=== PATIENT | female | born 1945 | race Caucasian/White ===

== ENCOUNTER → 2018-02-06 10:41 | Outpatient (CLI) | payer MEDICARE, SELFPAY ==
--- NOTE | 2018-02-06 10:46 | BI_ITS ---
MAMMOGRAPHY - BILATERAL SCREENING REASON FOR EXAM: Female, 72 years old. Routine annual screening examination. PERTINENT HISTORY: Mother with breast cancer. TECHNIQUE: Digital bilateral breast elijah (3D mammographic acquisition) in the CC and MLO projections. 2-D mediolateral oblique (MLO) and craniocaudad (CC) views of both breasts were obtained. CAD: Full Field Digital Mammography with Computer Added Detection was performed. COMPARISON: Comparison is made with prior active examination in June 14, 2016. FINDINGS: Breast Composition: The breasts are heterogeneously dense, which may obscure small masses. There are no dominant masses or suspicious calcifications. No other significant abnormalities are identified. There has been no significant change since the prior study. BI/SCREENING MAMM (CAD), BILAT IMPRESSION: Stable bilateral screening mammogram. Yearly follow-up mammogram recommended. (A) ASSESSMENT CATEGORY: BIRADS Category 1: Negative. A letter regarding these results will be sent to the patient by the facility within 30 days. Approximately 10% of breast cancers are not detected by mammography. A normal mammogram should not delay biopsy of a clinically suspicious abnormality. [id number] Electronically Signed: Mor Kimbrough MD at 15:22 EDT Tel [phone], Service support ,
--- NOTE | 2018-02-06 10:50 | BD_ITS ---
STUDY: DUAL ENERGY X-RAY ABSORPTIOMETRY / DXA REASON FOR EXAM: Female, 72 years old. And a positive age 54. Moderate exercise. History of left ankle fracture. TECHNIQUE: Bone Mineral Density (BMD) measurements of lumbar spine and bilateral hips were obtained. COMPARISON: October 11, 2000 FINDINGS: Lumbar Spine (L1-L4): g/cm2 (0.927) / T-score (-2.1) / Z-score (-0.4) Findings are suggestive of osteopenia with a moderate fracture risk. Left Femur Total: g/cm2 (0.670) / T-score (-2.7) / Z-score (-1.2) Left Femoral Neck: g/cm2 (0.705) / T-score (-2.4) / Z-score (-0.7) Right Femur Total: g/cm2 (0.705) / T-score (-2.4) / Z-score (-0.9) Right Femoral Neck: g/cm2 (0.711) / T-score (-2.4) / Z-score (-0.7) The T-Scores on the most recent prior examination were: Lumbar Spine (L1-L4): There has been improvement of bone density since the previous examination of 2.3%. Left Femur Total: There is been a decrease in bone mineral density of -17.8%. BD/Dexa Bone Density Study IMPRESSION: The patient is considered osteoporotic as outlined below according to World Mg Organization (WHO) criteria with a high fracture risk. There has been overall worsening of bone density since the previous examination. Reference Information: The T-score is the number of standard deviations above or below the standard which is normal for young adults at their peak bone mineral density. The World Health Organization (WHO) interprets the T-scores as follows: Above -1 Normal bone density Between -1 and -2.5 Osteopenia Equal to / or below -2.5 Osteoporosis As a practical clinical guideline, osteopenia may be graded as follows: Mild -1 through -1.5 Moderate -1.6 through -2.0 Severe -2.1 through -2.4 The Z-score is the number of standard deviations above or below age-matched controls. A Z-score of less than -1.5 would be considered abnormal. References: 1. NIH Osteoporosis and Related Bone Diseases http://www.osteo.org 2. International Society for Clinical Densitometry http://www.iscd.org 3. National Osteoporosis Foundation http://www.nof.org Electronically Signed: Moustapha Pollack DO at 11:50 EDT Tel [phone], Service support ,
== END ==
PROVIDERS: Family Provider Family Medicine; PCP Family Medicine; Visit Provider Family Medicine
DX: Z12.31 Encounter for screening mammogram for malignant neoplasm of breast (principal); Z78.0 Asymptomatic menopausal state
CPT/HCPCS: 77063; 77067; 77080

== ENCOUNTER → 2018-06-13 08:57 | Outpatient (CLI) | payer MEDICARE, SELFPAY ==
[2018-06-13 10:12] LABS: Absolute Lymphocyte Count 1.22 X10^3/ul (0.83-4.51); Absolute Neutrophil Count 2.2 X10^3/uL (2.0-7.7); Basophil# 0.02 X10^3/uL; Basophil% 0.5 % (0-1); Eosinophil# 0.16 X10^3/uL; Eosinophils% 3.9 % (0-5); Hematocrit 41.4 % (37-47); Hemoglobin 13.3 g/dl (12.0-15.0); Lymphocyte # 1.22 X10^3/ul (4.0); Lymphocyte % 29.9 % (19-41); Mean Corp Hgb Conc 32.1 g/gl (32-36); Mean Corpuscular Hgb 29.8 pg (27.0-32.0); Mean Corpuscular Volume 92.6 fL (81-99); Mean Platelet Vol. 11.2 fl (6.2-12.0); Monocyte# 0.53 X10^3/uL; Neutrophil # 2.15 X10^3/uL (2.7-7.7); Neutrophil % 52.7 % (47-70); Platelet Count 283 K/mm3 (150-450); RBC Distribution Width CV 12.7 % (11.6-14.6); RBC Distribution Width SD 42.9 fl (35.1-43.9); Red Blood Count 4.47 M/mm3 (4.2-5.4); White Blood Count 4.1 K/mm3 (4.4-11.0)
[2018-06-13 10:15] LABS: POSITIVE COUNT NO; POSITIVE DIFFERENTIAL NO; POSITIVE MORPHOLOGY NO
[2018-06-13 10:31] LABS: Anion Gap 7 (5-15); BUN 15 mg/dL (7-18); BUN/Creat Ratio 20.9 RATIO (10-20); Calcium,Total 9.1 mg/dL (8.5-10.1); Chloride 106 mmol/L (98-107); Creatinine, Serum 0.72 mg/dL (0.55-1.02); EST Glomerular Filtration Rate 85 mL/min (>60); Est Glom Filt Rate - Afr Amer 103 mL/min (>60); Glucose 94 mg/dL (74-106); Potassium 3.8 mmol/L (3.5-5.1); Sodium Level 142 mmol/L (136-145); Thyroid Stim Hormone (TSH) 3.38 uIU/mL (0.358-3.74)
[2018-06-13 10:41] LABS: PTHIN 56.8 pg/mL (18.4-80.1); Vitamin D,25 Hydroxy 54.8 ng/mL (29.95-100.01)
== END ==
PROVIDERS: Family Provider Family Medicine; PCP Family Medicine; Visit Provider Family Medicine
DX: M81.0 Age-related osteoporosis without current pathological fracture (principal); K21.9 Gastro-esophageal reflux disease without esophagitis; Z13.220 Encounter for screening for lipoid disorders
CPT/HCPCS: 36415; 80048; 82306; 82330; 83970; 84443; 85025

== ENCOUNTER → 2018-07-11 10:48 | Outpatient (CLI) | payer MEDICARE, SELFPAY ==
--- NOTE | 2018-07-11 10:57 | RAD_ITS ---
STUDY: X-RAY - ABDOMEN/PELVIS REASON FOR EXAM: Female, 72 years old. Constipation with pain in the right lower quadrant and right lower back. TECHNIQUE: KUB upright and supine COMPARISON: CT abdomen and pelvis 03/15/2016. FINDINGS: Moderate stool burden of large bowel, primarily at the splenic flexure and descending colon, not excessive, no apparent constipation. Normal small bowel pattern, scattered gas, nondilated. Grossly normal size and position of the solid organs of the abdomen. No free air. No evidence of urinary calculus. 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 The lung bases are clear with normal cardiac silhouette. There is mild levoscoliotic curvature lumbar spine with mild low lumbar degenerative disc disease and facet arthropathy between L3 and S1. Osteopenia. RAD/Abd Inc Decub and/or Erect IMPRESSION: No acute intra-abdominal process is evident. No evidence of constipation. Lumbar scoliosis with mild low lumbar spondylosis. Electronically Signed: Shayne Piña, at 12:00 EST Tel , Service support ,
== END ==
PROVIDERS: Family Provider Family Medicine; PCP Family Medicine; Referring Provider Family Medicine; Visit Provider Family Medicine
DX: K59.00 Constipation, unspecified (principal)
CPT/HCPCS: 74019

== ENCOUNTER → 2020-02-17 | Outpatient (CLI) | payer MEDICARE, SELFPAY ==
[2020-02-17 09:58] LABS: Hematocrit 42.2 % (37-47); Hemoglobin 13.3 g/dL (12.0-15.0); Mean Corp Hgb Conc 31.5 g/dL (32-36); Mean Corpuscular Hgb 29.7 pg (27.0-32.0); Mean Corpuscular Volume 94.2 fL (81-99); Mean Platelet Vol. 11.2 fl (6.2-12.0); Platelet Count 290 K/mm3 (150-450); RBC Distribution Width CV 12.4 % (11.6-14.6); RBC Distribution Width SD 42.6 fl (35.1-43.9); Red Blood Count 4.48 M/mm3 (4.2-5.4); White Blood Count 4.2 K/mm3 (4.4-11.0)
[2020-02-17 10:37] LABS: Anion Gap 6 (5-15); BUN 14 mg/dL (7-18); BUN/Creat Ratio 20.3 RATIO (10-20); Calcium,Total 9.1 mg/dL (8.5-10.1); Chloride 104 mmol/L (98-107); Creatinine, Serum 0.69 mg/dL (0.55-1.02); EST Glomerular Filtration Rate 89 mL/min (>60); Est Glom Filt Rate - Afr Amer 108 mL/min (>60); Glucose 93 mg/dL (74-106); Potassium 4.2 mmol/L (3.5-5.1); Sodium Level 140 mmol/L (136-145)
== END | disposition home or self-care (01) ==
PROVIDERS: PCP Family Medicine; Referring Provider Family Medicine; Visit Provider Family Medicine
DX: K21.9 Gastro-esophageal reflux disease without esophagitis (principal); M81.0 Age-related osteoporosis without current pathological fracture
CPT/HCPCS: 36415; 80048; 85027

== ENCOUNTER → 2021-02-01 09:13 | Outpatient (CLI) | payer MEDICARE, SELFPAY ==
[2021-02-01 12:24] LABS: Vitamin D,25 Hydroxy 44.2 ng/mL
[2021-02-01 12:27] LABS: PTHIN 62.8 pg/mL (18.4-80.1)
[2021-02-01 12:34] LABS: Anion Gap 3 (5-15); BUN 14 mg/dL (7-18); BUN/Creat Ratio 19.7 RATIO (10-20); Calcium,Total 9.2 mg/dL (8.5-10.1); Chloride 106 mmol/L (98-107); Creatinine, Serum 0.71 mg/dL (0.55-1.02); EST Glomerular Filtration Rate 85 mL/min (>60); Est Glom Filt Rate - Afr Amer 103 mL/min (>60); Glucose 93 mg/dL (74-106); Potassium 3.7 mmol/L (3.5-5.1); Sodium Level 139 mmol/L (136-145); Thyroid Stim Hormone (TSH) 2.89 uIU/mL (0.358-3.74)
== END ==
PROVIDERS: PCP Family Medicine; Visit Provider Family Medicine
DX: M81.0 Age-related osteoporosis without current pathological fracture (principal)
CPT/HCPCS: 36415; 80048; 82306; 83970; 84443

== ENCOUNTER → 2022-02-06 | Outpatient (CLI) | payer MEDICARE, SELFPAY ==
[2022-02-06 10:29] LABS: PTHIN 77.5 pg/mL (18.4-80.1)
[2022-02-06 10:46] LABS: Anion Gap 3 (5-15); BUN 16 mg/dL (7-18); Calcium,Total 8.9 mg/dL (8.5-10.1); Chloride 109 mmol/L (98-107); EST Glomerular Filtration Rate 74 mL/min (>60); Est Glom Filt Rate - Afr Amer 90 mL/min (>60); Glucose 100 mg/dL (74-106); Potassium 3.8 mmol/L (3.5-5.1); Sodium Level 141 mmol/L (136-145)
== END | disposition home or self-care (01) ==
LOC: MFPLAB 08:41
PROVIDERS: PCP Family Medicine; Visit Provider Family Medicine
DX: M81.0 Age-related osteoporosis without current pathological fracture (principal)
CPT/HCPCS: 80048; 82306; 82330; 83970

== ENCOUNTER → 2023-08-15 | Outpatient (CLI) | payer MEDICARE, SELFPAY ==
--- NOTE | 2023-08-15 12:46 | BI_ITS ---
MAMMOGRAPHY - BILATERAL SCREENING REASON FOR EXAM: Female, 77 years old. Routine annual screening examination. PERTINENT HISTORY: Mother with breast cancer. TECHNIQUE: Digital bilateral breast elijah (3D mammographic acquisition) in the CC and MLO projections. 2-D mediolateral oblique (MLO) and craniocaudad (CC) views of both breasts were obtained. CAD: Full Field Digital Mammography with Computer Added Detection was performed. COMPARISON: Comparison is made with prior study dated February 06, 2018. FINDINGS: Breast Composition: The breasts are heterogeneously dense, which may obscure small masses. There are no dominant masses or suspicious calcifications. Stable benign-appearing bilateral axillary lymph nodes. No other significant abnormalities are identified. There has been no significant change since the prior study. BI/SCREENING MAMM (CAD), BILAT IMPRESSION: Stable bilateral screening mammogram. Yearly follow-up mammogram recommended. (A) ASSESSMENT CATEGORY: BIRADS Category 2: Benign. A letter regarding these results will be sent to the patient by the facility within 30 days. Approximately 10% of breast cancers are not detected by mammography. A normal mammogram should not delay biopsy of a clinically suspicious abnormality. [id number] Electronically Signed: Mor Kimbrough MD at 14:02 EST ,
== END | disposition home or self-care (01) ==
LOC: OPBI 12:45
PROVIDERS: PCP Family Medicine; Referring Provider Family Medicine; Visit Provider Family Medicine
DX: Z12.31 Encounter for screening mammogram for malignant neoplasm of breast (principal); Z80.3 Family history of malignant neoplasm of breast
CPT/HCPCS: 77067

== ENCOUNTER → 2024-01-01 | Outpatient (CLI) | payer MEDICARE, SELFPAY ==
[2024-01-01 10:28] LABS: Vitamin D,25 Hydroxy 67.9 ng/mL
[2024-01-01 10:29] LABS: PTHIN 52.1 pg/mL (18.4-80.1)
[2024-01-01 10:56] LABS: Anion Gap 7 (5-15); BUN 17 mg/dL (7-18); BUN/Creat Ratio 20.4 RATIO (10-20); Calcium,Total 9.5 mg/dL (8.5-10.1); Chloride 106 mmol/L (98-107); Creatinine, Serum 0.83 mg/dL (0.55-1.02); EST Glomerular Filtration Rate 71 mL/min (>60); Est Glom Filt Rate - Afr Amer 86 mL/min (>60); Glucose 107 mg/dL (74-106); Magnesium 2.2 mg/dL (1.6-2.6); Phosphorus 2.7 mg/dL (2.5-4.9); Potassium 3.6 mmol/L (3.5-5.1); Sodium Level 139 mmol/L (136-145); Thyroid Stim Hormone (TSH) 4.09 uIU/mL (0.358-3.74)
--- NOTE | 2024-01-01 16:44 | RAD_ITS ---
STUDY: X-RAY - PELVIS REASON FOR EXAM: Female, 78 years old. LUMBAR PAIN TECHNIQUE: One view of the pelvis was obtained. COMPARISON: None. FINDINGS: There is a non-specific bowel gas pattern. Normal visualized soft tissue structures. Normal bilateral iliac wings, sacroiliac joints and visualized sacrum. Normal visualized bilateral superior and inferior pubic rami. Normal pubic symphysis. Normal ischial tuberosities. Normal visualized right femoral head. Normal right acetabulum. There is mild articular joint space narrowing of the right hip. Normal visualized left femoral head. Normal left acetabulum. There is mild articular joint space narrowing of the left hip. RAD/Pelvis 1 or 2 Views IMPRESSION: Normal x-ray examination of the pelvis. Mild bilateral hip arthrosis. Electronically Signed: Shayne Gaming MD at 23:40 EDT ,
--- NOTE | 2024-01-01 16:45 | RAD_ITS ---
STUDY: X-RAY - LUMBAR SPINE REASON FOR EXAM: Female, 78 years old. PAIN TECHNIQUE: 5 view(s) of the lumbar spine were obtained. COMPARISON: None FINDINGS: Normal lumbar lordosis. There is no substantial scoliosis. There is a normal alignment of the vertebrae. There is multilevel endplate spondylosis of the lumbar vertebrae. There is multi-level degenerative disc disease with multi-level disc space narrowing. There is multilevel facet hypertrophy in the lower lumbar spine. The soft tissue structures are unremarkable. RAD/L/S Spine Min 4 Views IMPRESSION: Degenerative changes of the spine, as detailed above. MRI may be useful. Electronically Signed: Shayne Gaming MD at 23:52 EDT ,
[2024-01-02 16:12] LABS: T4 Free Direct 1.25 ng/dL (0.76-1.46)
== END | disposition home or self-care (01) ==
PROVIDERS: PCP Family Medicine; Referring Provider Family Medicine; Visit Provider Family Medicine
DX: E03.9 Hypothyroidism, unspecified (principal); M54.50 Low back pain, unspecified; M81.0 Age-related osteoporosis without current pathological fracture
CPT/HCPCS: 72110; 72170; 80048; 82306; 83735; 83970; 84100; 84439; 84443

== ENCOUNTER → 2024-02-13 | Outpatient (CLI) | payer MEDICARE, SELFPAY ==
--- NOTE | 2024-02-13 12:34 | BD_ITS ---
STUDY: DUAL ENERGY X-RAY ABSORPTIOMETRY / DXA REASON FOR EXAM: Female, 78 years old. 733.00OsteoporosisBONE DENSITY REASON FOR EXAM TECHNIQUE: Bone Mineral Density (BMD) measurements of lumbar spine and bilateral hips were obtained. COMPARISON: Comparison is made with prior study dated February 06, 2018. FINDINGS: Lumbar Spine (L1-L4): g/cm2 (0.695) / T-score (-2.6) / Z-score (-0.3) Findings are suggestive of osteoporosis with a high fracture risk. Left Femur Total: g/cm2 (0.635) / T-score (-2.5) / Z-score (-0.7) Left Femoral Neck: g/cm2 (0.543) / T-score (-2.8) / Z-score (-0.6) Right Femur Total: g/cm2 (0.632) / T-score (-2.5) / Z-score (-0.7) Right Femoral Neck: g/cm2 (0.566) / T-score (-2.6) / Z-score (-0.4) The T-Scores on the most recent prior examination were: Lumbar Spine (L1-L4): There has been worsening of bone density since the previous examination. Left Femur Total: which represents an improvement of 3.5%. Right Femur Total: which represents a worsening of 2.4%. BD/Dexa Bone Density Study IMPRESSION: The patient is considered osteoporotic as outlined below according to World Mg Organization (WHO) criteria with a high fracture risk. There has been worsening of bone density since the previous examination. Reference Information: The T-score is the number of standard deviations above or below the standard which is normal for young adults at their peak bone mineral density. The World Health Organization (WHO) interprets the T-scores as follows: Above -1 Normal bone density Between -1 and -2.5 Osteopenia Equal to / or below -2.5 Osteoporosis As a practical clinical guideline, osteopenia may be graded as follows: Mild -1 through -1.5 Moderate -1.6 through -2.0 Severe -2.1 through -2.4 The Z-score is the number of standard deviations above or below age-matched controls. A Z-score of less than -1.5 would be considered abnormal. References: 1. NIH Osteoporosis and Related Bone Diseases www osteo.org 2. International Society for Clinical Densitometry www iscd.org 3. National Osteoporosis Foundation www nof.org Electronically Signed: Mor Kimbrough MD at 12:30 EDT ,
== END | disposition home or self-care (01) ==
PROVIDERS: PCP Family Medicine; Visit Provider Family Medicine
DX: M81.0 Age-related osteoporosis without current pathological fracture (principal)
CPT/HCPCS: 77080

== ENCOUNTER → 2024-09-16 | Outpatient (CLI) | payer MEDICARE, SELFPAY ==
--- NOTE | 2024-09-16 10:49 | RAD_ITS ---
HISTORY: PAIN. TECHNIQUE: XR Spine Cervical 6 or More Views. COMPARISON: None. FINDINGS: VERTEBRAE: Vertebral body heights maintained. No acute fracture identified. ALIGNMENT: No significant anterior or posterior subluxation. Straightening of the cervical lordosis. INTERVERTEBRAL DISCS: Degenerative endplate changes at multiple levels with mild intervertebral disc space narrowing of C3-4, moderate intervertebral disc space narrowing at C5-6, and mild intervertebral disc space narrowing of C6-7. Mild bilateral foraminal narrowing at C3-4, C5-6, at C6-7. SOFT TISSUES: No significant prevertebral soft tissue swelling. RAD/Cerv Spine Obl/Flex/Ext Comp IMPRESSION: No acute fracture or dislocation identified in the cervical spine. Multilevel degenerative change. Electronically Signed: Anna Rosas MD at 12:04 EST ,
== END | disposition home or self-care (01) ==
LOC: MTRAD 10:48
PROVIDERS: PCP Family Medicine; Referring Provider Family Medicine; Visit Provider Family Medicine
DX: M54.2 Cervicalgia (principal)
CPT/HCPCS: 72052

== ENCOUNTER → 2025-02-03 | Outpatient (CLI) | payer MEDICARE, SELFPAY ==
[2025-02-03 11:03] LABS: Anion Gap 11 (5-15); BUN 15 mg/dL (4-19); BUN/Creat Ratio 20.3 RATIO (10-20); Calcium,Total 9.4 mg/dL (7.6-11.0); Carbon Dioxide 24.1 mmol/L (21.0-32.0); Chloride 106 mmol/L (98-108); Creatinine, Serum 0.74 mg/dL (0.70-1.20); EST Glomerular Filtration Rate 83 (>60); Glucose 104 mg/dL (70-99); Potassium 4.1 mmol/L (3.3-5.1); Sodium Level 141 mmol/L (133-145); Vitamin D,25 Hydroxy 46.8 ng/mL (30-100)
--- OUTSIDE RECORDS SUMMARY | 2025-02-03 11:24 | XMS RPT_ITS | CCD ---
Author Organization [facility] Inform ion Partnership [facility] Care Team Providers Care Financial Economist Name Role Phone APRIL MIDDLETON, DR FLOREZ Primary Care Physician APRIL MIDDLETON, DR FLOREZ Primary Care Lanny ALFORD MD, DR BAÑUELOS Attending Farideh ALFORD MD, DR BAÑUELOS Attending Farideh LATHAM MD, DR FLOREZ Primary Care Gautam David Primary Care Unavailable Gautam Latham Referring Unavailable Gautam Latham Attending Unavailable Gautam Latham Primary Care Unavailable Gautam Latham Attending Unavailable Gautam Latham Primary Care Unavailable Gautam Latham Referring Unavailable Gautam Latham Attending Unavailable Allergies Allergy Classification Reported Allergen(s) Allergy Type Date of Onset Reaction(s) Facility (2 sources) Amoxicillin; Translations: [amoxicillin trihydrate] Drug Allergy 03-15-20 16 [facility] (2 sources) Cephalexin; Translations: [cephalexin] Drug Allergy 03-15-20 16 [facility] (2 sources) Halothane; Translations: [halothane] Drug Allergy 03-15-[address] [facility] (1 source) Penicillins Propensity to adverse reactions 03-15-[address] [facility] (1 source) Sulfamethoxazole Drug Allergy 03-15-20 16 [facility] (1 source) Trimethoprim Drug Allergy 03-15-20 16 [facility] (2 sources) potassium clavulanate; Translations: [potassium clavulanate] Propensity to adverse reactions 03-15-20 16 [facility] (1 source) Amoxicillin; Translations: [amoxicillin] Drug Allergy [facility] (1 source) Amoxicillin / Clavulanate; Translations: [amoxicillin-clavula curtis] Drug Allergy RASH, rAH [facility] (1 source) Penicillin; Translations: [penicillin] Drug Allergy [facility] (1 source) Sulfonamide; Translations: [sulfa drugs] Drug allergy [facility] (1 source) Cephalexin Drug Allergy 03-15-[address] [facility] (1 source) Halothane Drug Allergy 03-15-[address] [facility] (1 source) Penicillins Drug allergy (disorder) 03-15-[address] [facility] (1 source) Sulfamethoxazole Drug Allergy 03-15-[address] [facility] (1 source) Trimethoprim Drug Allergy 03-15-[address] [place] [address] Repository Medications Current Medications Medication Drug Class(es) Dates Sig (Normalized) Sig (Original) acetaminophen 325 mg / oxyCODONE hydrochloride 5 mg oral tablet (1 source) Opioid Agonist Start: 03-15-2016 take 1 tablet by mouth every four hours as needed Oxycodone-Acetami nophen Active 1 - 2 TABLET PO EVERY 4 HOURS NEEDED March 14, 2016 11:00pm naproxen 500 mg oral tablet (1 source) Nonsteroidal Anti-inflammatory Drug Start: 03-15-2016 take 500 mg by mouth twice daily Naproxen Active 500 MG PO TWICE A DAY March 14, 2016 11:00pm omeprazole 20 mg delayed release oral capsule (1 source) Proton Pump Inhibitor Start: 11-19-2023 omeprazole 20 mg oral delayed release capsule 0 Refill(s) Start Date: 11/19/23 Status: Ordered ondansetron 4 mg disintegrating oral tablet (1 source) Serotonin-3 Receptor Antagonist Start: 03-15-2016 take 4 mg by mouth every eight hours as needed Ondansetron Active 4 MG PO EVERY 8 HOURS NEEDED March 14, 2016 11:00pm tamsulosin hydrochloride 0.4 mg oral capsule (1 source) alpha-Adrenergic Chacha Start: 03-15-2016 take 0.4 mg by mouth once daily Tamsulosin Active 0.4 MG PO DAILY March 14, 2016 11:00pm tiZANidine 4 mg oral tablet (1 source) Central alpha-2 Adrenergic Agonist Start: 11-19-2023 tiZANidine 4 mg oral tablet 0 Refill(s) Start Date: 11/19/23 Status: Ordered Problems Active Problems Problem Classification Problem Date Documented Da te Episodic/Chronic Osteoporosis (1 source) Age-related osteoporosis without current pathological fracture; Translations: [Age-related osteoporosis without current pathological fracture] Onset: 02-21-2024 Chronic Other and unspecified benign neoplasm (2 sources) Polyp of colon; Translations: [Polyp of colon] Onset: 11-19-2023 Episodic Other screening for suspected conditions (not mental disorders or infectious disease) (1 source) Encounter for screening mammogram for malignant neoplasm of breast; Translations: [Encounter for screening mammogram for malignant neoplasm of breast] Onset: 01-30-2025 Episodic Past or Other Problems Problem Classification Problem Date Documented Da te Episodic/Chronic Spondylosis; intervertebral disc disorders; other back problems (1 source) Cervicalgia; Translations: [Cervicalgia] Onset: 10-07-2024 Episodic Results Test Name Value Interpretation Reference Range Facil ity Cerv Spine Obl/Flex/Ext Comp on 09-16-2024 Cerv Spine Obl/Flex/Ext Comp [facility] Imaging Services [address] [place] [address] [id number] Cerv Spine Obl/Flex/Ext Comp MR#: [id number] Acct: [id number] Name: NOREEN JULIO Rep #: [id number] : 1945 F 79 From: Anna viera MD PCP: Dr. Gautam Latham MD Status: REG CLI Study: Cerv Spine Obl/Flex/Ext Comp Date of Exam: Exam# [id number] Ordering Dr: Gautam Latham [id number] HISTORY: PAIN. TECHNIQUE: XR Spine Cervical 6 or More Views. COMPARISON: None. FINDINGS: VERTEBRAE: Vertebral body heights maintained. No acute fracture identified. ALIGNMENT: No significant anterior or posterior subluxation. Straightening of the cervical lordosis. INTERVERTEBRAL DISCS: Degenerative endplate changes at multiple levels with mild intervertebral disc space narrowing of C3-4, moderate intervertebral disc space narrowing at C5-6, and mild intervertebral disc space narrowing of C6-7. Mild bilateral foraminal narrowing at C3-4, C5-6, at C6-7. SOFT TISSUES: No significant prevertebral soft tissue swelling. RAD/Cerv Spine Obl/Flex/Ext Comp IMPRESSION: No acute fracture or dislocation identified in the cervical spine. Multilevel degenerative change. Electronically Signed: Anna Rosas MD at 12:04 EST Reading Location ID and State: [facility] / [place] Tel , Service support , CC: Dr. Gautam Latham MD Supervisor Vendor Quality: Signed Normal [facility] Dexa Bone Density Studyon Dexa Bone Density Study [facility] Imaging Services [address] [place] [address] [id number] Dexa Bone Density Study MR#: [id number] Acct: [id number] Name: NOREEN JULIO Rep #: [id number] : 1945 F 78 From: Mor zavala MD PCP: Dr. Gautam Latham MD Status: [facility] Study: Dexa Bone Density Study Date of Exam: 02/13/24 Exam# [id number] Ordering Dr: Florentino Felix MD [id number] STUDY: DUAL ENERGY X-RAY ABSORPTIOMETRY / DXA REASON FOR EXAM: Female, 78 years old. 733.00OsteoporosisBONE DENSITY REASON FOR EXAM TECHNIQUE: Bone Mineral Density (BMD) measurements of lumbar spine and bilateral hips were obtained. COMPARISON: Comparison is made with prior study dated February 06, 2018. FINDINGS: Lumbar Spine (L1-L4): g/cm2 (0.695) / T-score (-2.6) / Z-score (-0.3) Findings are suggestive of osteoporosis with a high fracture risk. Left Femur Total: g/cm2 (0.635) / T-score (-2.5) / Z-score (-0.7) Left Femoral Neck: g/cm2 (0.543) / T-score (-2.8) / Z-score (-0.6) Right Femur Total: g/cm2 (0.632) / T-score (-2.5) / Z-score (-0.7) Right Femoral Neck: g/cm2 (0.566) / T-score (-2.6) / Z-score (-0.4) The T-Scores on the most recent prior examination were: Lumbar Spine (L1-L4): There has been worsening of bone density since the previous examination. Left Femur Total: which represents an improvement of 3.5%. Right Femur Total: which represents a worsening of 2.4%. BD/Dexa Bone Density Study IMPRESSION: The patient is considered osteoporotic as outlined below according to World Mg Organization (WHO) criteria with a high fracture risk. There has been worsening of bone density since the previous examination. Reference Information: The T-score is the number of standard deviations above or below the standard which is normal for young adults at their peak bone mineral density. The World Health Organization (WHO) interprets the T-scores as follows: Above -1 Normal bone density Between -1 and -2.5 Osteopenia Equal to / or below -2.5 Osteoporosis As a practical clinical guideline, osteopenia may be graded as follows: Mild -1 through -1.5 Moderate -1.6 through -2.0 Severe -2.1 through -2.4 The Z-score is the number of standard deviations above or below age-matched controls. A Z-score of less than -1.5 would be considered abnormal. References: 1. NIH Osteoporosis and Related Bone Diseases www osteo.org 2. International Society for Clinical Densitometry www iscd.org 3. National Osteoporosis Foundation www nof.org Electronically Signed: Mor Kimbrough MD at 12:30 EDT , CC: Dr. Gautam Latham MD; Dr. Florentino Felix MD Supervisor Vendor Quality: Signed Normal [facility] Final Surgical Pathology Rep rah 11-21-2023 Final Surgical Pathology Report . Pathology Reports Accession: Collected Date/Time: Received Date/Time: Pathologist: [id number] 11/19/2023 09:54 EDT 11/20/2023 07:33 EDT THOMAS CHILDERS MD Final Surgical Pathology Report DIAGNOSIS: PROXIMAL SIGMOID COLON, POLYPECTOMY: - TUBULOVILLOUS ADENOMA CLINICAL INFORMATION: PROCEDURE: FLEXIBLE SIGMOIDOSCOPY WITH ARGON PLASMA COAGULATION PREOPERATIVE DIAGNOSIS: SIGMOID POLYP POSTOPERATIVE DIAGNOSIS: SIGMOID POLYP SPECIMEN: A PROXIMAL SIGMOID GROSS DESCRIPTION: All parts labelled with patient name and [id number] Received in formalin labeled proximal sigmoid are 2 alexandre-pink tissue fragments measuring 0.7 x 0.4 and 1.9 x 1.8 x 1.5 cm. Margin inked on largest fragment and specimen is dissected. TS-3 Linda Larios, Grossing Paraffiner/ Dr. Thomas Childers, Pathologist Dictated by Linda Larios MICROSCOPIC DESCRIPTION: The microscopic examination is performed, except in the case of Gross Only. Electronically Signed by Pathology Report verified by [facility] THOMAS CHILDERS Sign out Date: 11/21/2023 14:44 Performing Lab: [facility], [address] [place] [address] Pathology Dept Disclaimer If ancillary studies were utilized, the following Laboratory Developed Test (LDT) disclaimer will apply: Under CLIA requirements, [facility] is qualified to perform high complexity testing. For all ancillary stains, positive and negative controls stain appropriately. Performance characteristics of immunohistochemical and chromogenic in-situ hybridization tests have been determined by [facility]. These tests are used for clinical purposes, They should not be regarded as investigational or for research. Normal [facility] ([place]) Vital Signs Date Time Vital Sign Value Performing Clinician Marck richardson 11-19-2023 10:59-0400 Diastolic Blood Pressure Non-Invasive 81 mm[Hg] DR EDDA ALFORD MD [facility] 11-19-2023 10:59-0400 Heart rate 66 /min DR EDDA ALFORD MD [facility] 11-19-2023 10:59-0400 Respiratory rate 19 /min DR EDDA ALFORD MD [facility] 11-19-2023 10:59-0400 Systolic Blood Pressure Non-Invasive 102 mm[Hg] DR EDDA ALFORD MD [facility] 11-19-2023 10:51-0400 Diastolic Blood Pressure Non-Invasive 50 mm[Hg] DR EDDA ALFORD MD [facility] 11-19-2023 10:51-0400 Heart rate 68 /min DR EDDA ALFORD MD [facility] 11-19-2023 10:51-0400 Respiratory rate 14 /min DR EDDA ALFORD MD [facility] 11-19-2023 10:51-0400 Systolic Blood Pressure Non-Invasive 94 mm[Hg] DR EDDA ALFORD MD [facility] 11-19-2023 10:46-0400 Diastolic Blood Pressure Non-Invasive 51 mm[Hg] DR EDDA ALFORD MD [facility] 11-19-2023 10:46-0400 Heart rate 72 /min DR EDDA ALFORD MD [facility] 11-19-2023 10:46-0400 Respiratory rate 20 /min DR EDDA ALFORD MD [facility] 11-19-2023 10:46-0400 Systolic Blood Pressure Non-Invasive 94 mm[Hg] DR EDDA ALFORD MD [facility] 11-19-2023 10:37-0400 Body temperature 96.98 [degF] DR EDDA ALFORD MD [facility] 11-19-2023 10:30-0400 Respiratory Rate - Anes 16 br/min DR EDDA ALFORD MD [facility] 11-19-2023 10:25-0400 Respiratory Rate - Anes 19 br/min DR EDDA ALFORD MD [facility] 11-19-2023 10:20-0400 Respiratory Rate - Anes 19 br/min DR EDDA ALFORD MD [facility] Encounters Encounter Date Encounter Type Care Provider Facility Start: 02-03-2025 ambulatory Gautam Latham [facility] lity:[facility] Start: 12-01-2024 End: 12-01-[address] EDDA ALFORD MD Facility:[facility] Start: 09-16-2024 End: 09-16-2024 ambulatory Gautam Latham Facility:[facility] Start: 02-13-2024 End: 02[facility] [facility] Start: 11-19-2023 End: 11-19-[address] GAUTAM LATHAM MD Facility:[facility] Start: 11-19-2023 End: 11-19-[address] EDDA ALFORD MD [facility] Start: 08-15-2023 End: 08-15-[address] [facility] Work Phone: Start: 08-15-2023 End: 08-15-2023 Patient encounter [address] [facility] Work Phone: Procedures Date Procedure Procedure Detail Performing Clinician Start: 08-15-2023 Screening mammograph y of bilateral breasts section DR EDDA ALFORD MD Cholecystectomy DR EDDA RIBEIRO MD Cholecystectomy DR EDDA RIBEIRO MD Colonoscopy DR EDDA VENTURA MD Fracture of ankle (disorder) DR EDDA ALFORD MD Tonsillectomy DR EDDA RICHARDSON MD Payers Date Payer Category Payer Self-pay [id number] 2022 Private Health Insurance 101 [id number] 2012 Medicare MEDICARE PART A B [id number] 2011 Private Health Insurance [employer] MEB [id number] 1945 Unknown [id number] 1945 Unknown [id number] Unknown [id number] Unknown [id number] Unknown [id number] Social History Date Type Detail Facility Start: 03-15-2016 Tobacco smoking stat us ILIS Unknown if ever smoked [facility] Start: 1945 Sex Assigned At Female W [facility] Start: 11-19-2023 Tobacco smoking status Never s moked tobacco (finding) [facility] Functional Status Date Assessment Result Facility 11-19-2023 Functional Status ID band on, Allergy Band on, Call device within reach, Bed in low position, Wheels locked [facility] 11-19-2023 Functional Status Maintained [place] Luis Manuel darling [facility] Mental Status Date Assessment Result Facility 11-19-2023 Mental Status Oriented x 4 [place] [facility] Evaluation + Plan note 11-19-2023 Note Date & Type Note Facility 11-19-2023 Evaluation + Plan note [place]rac [place] from: Title:Clinical Document Author:EDDA ALFORD Date:11/19/23 SPARTA ADMISSION HISTORY AN D PHYSICIAL CHIEF COMPLAINT: HISTORY OF PRESENT ILLNESS: REVIEW OF SYSTEMS: ACTIVE PROBLEMS: (1) Kidney stones ([id number]) MEDICATIONS: Active Inpt Meds: None Active PRN Meds: None One Time Meds: None Active IV Meds: Lactated Ringers Infusion 1,000 mL (LR 1,000 mL) Start: 11/19/23 8:49:00 EDT, Rate: 50 mL/hr, 11/19/23 8:49:00 EDT ALLERGIES: (6) amoxicillin Augmentin cephalexin halothane penicillin sulfa drug FAMILY HISTORY: SOCIAL HISTORY: PHYSICAL EXAM: VITALS: No Data Available 24 Hr Tmax: No Data Available 36 Hr Tmax: No Data Available Vital Signs are the last 5 in the past 48 hours. Weights display the last 5 within 7 days. Initial Wt: No Data Available Current Wt: No Data Available GENERAL: HEENT: CARDIOVASCULAR: RESPIRATORY: ABDOMEN: EXREMETIES: NEUROLOGICAL: PSYCHIATRIC: LABS: No 36hr Lab Data DIAGNOSTICS: IMPRESSION: PLAN: History and Physical Update I have examined the patient; reviewed the H&P and there are no changes to the H&P unless noted below. [facility] Hospital Discharge instructions 11-19-2023 Note Date & Type Note Facility 11-19-2023 Hospital Discharg e instructions Patient Education 11/19/2023 10:56:25 Monitored Anesthesia Care, Care After Monitored Anesthesia Care, Care After These instructions provide you with information about caring for yourself after your procedure. Your health care provider may also give you more specific instructions. Your treatment has been planned according to current medical practices, but problems sometimes occur. Call your health care provider if you have any problems or questions after your procedure. What can I expect after the procedure? After your procedure, you may: Feel sleepy for several hours. Feel clumsy and have poor balance for several hours. Feel forgetful about what happened after the procedure. Have poor judgment for several hours. Feel nauseous or vomit. Have a sore throat if you had a breathing tube during the procedure. Follow these instructions at home: For at least 24 hours after the procedure: Have a responsible adult stay with you. It is important to have someone help care for you until you are awake and alert. Rest as needed. Do not: ?Participate in activities in which you could fall or become injured. ?Drive. ?Use heavy machinery. ?Drink alcohol. ?Take sleeping pills or medicines that cause drowsiness. ?Make important decisions or sign legal documents. ?Take care of children on your own. Eating and drinking Follow the diet that is recommended by your health care provider. If you vomit, drink water, juice, or soup when you can drink without vomiting. Make sure you have little or no nausea before eating solid foods. General instructions Take nyur-beh-ycraevw and prescription medicines only as told by your health care provider. If you have sleep apnea, surgery and certain medicines can increase your risk for breathing problems. Follow instructions from your health care provider about wearing your sleep device: ?Anytime you are sleeping, including during daytime naps. ?While taking prescription pain medicines, sleeping medicines, or medicines that make you drowsy. If you smoke, do not smoke without supervision. Keep all follow-up visits as told by your health care provider. This is important. Contact a health care provider if: You keep feeling nauseous or you keep vomiting. You feel light-headed. You develop a rash. You have a fever. Get help right away if: You have trouble breathing. Summary For several hours after your procedure, you may feel sleepy and have poor judgment. Have a responsible adult stay with you for at least 24 hours or until you are awake and alert. This information is not intended to replace advice given to you by your health care provider. Make sure you discuss any questions you have with your health care provider. Document Released: 12/03/2016 Document Revised: 11/11/2018 Document Reviewed: 12/03/2016 [employer] Patient Education 2020 [employer]. 11/19/2023 10:56:07 Flexible Sigmoidoscopy, Care After Flexible Sigmoidoscopy, Care After This sheet gives you information about how to care for yourself after your procedure. Your health care provider may also give you more specific instructions. If you have problems or questions, contact your health care provider. What can I expect after the procedure? After the procedure, it is common to have: Abdominal cramping or pain. Bloating. A small amount of rectal bleeding if you had a biopsy. Follow these instructions at home: Take pwcu-egp-ejkfkcw and prescription medicines only as told by your health care provider. Do not drive for 24 hours if you received a medicine to help you relax (sedative). Keep all follow-up visits as told by your health care provider. This is important. Contact a health care provider if: You have abdominal pain or cramping that gets worse or is not helped with medicine. You continue to have small amounts of rectal bleeding after 24 hours. You have nausea or vomiting. You feel weak or dizzy. You have a fever. Get help right away if: You pass large blood clots or see a large amount of blood in the toilet after having a bowel movement. You have nausea or vomiting for more than 24 hours after the procedure. This information is not intended to replace advice given to you by your health care provider. Make sure you discuss any questions you have with your health care provider. Document Released: 08/18/2014 Document Revised: 04/05/2017 Document Reviewed: 11/11/2016 [employer] Patient Education 2020 [employer]. Follow Up Care 09/18/2023 08:23:42 With:EDDA ALFORD MD [address] [address] [phone] When: Unknown [facility] Clinical Note 11-19-2023 Note Date & Type Note Facility 11-19-2023 Note Discharge Instructions Thank you for allowing [place] to assist you with your healthcare needs. The following is important discharge information regarding your hospital visit. Your Care Team APRIL MIDDLETON, GAUTAM Alford What to do next Follow Up Appointments Follow Up with EDDA ALFORD MD When Where: [address] [facility] [address] [place] [address]- [phone] Allergies Augmentin (RASH, rAH) amoxicillin cephalexin halothane penicillin sulfa drug Medications Please ask your primary doctor or pharmacist before taking any other medication not listed, including over the counter drugs, herbal medications, vitamins and or supplements as they may interact with your home medications. What When Instructions Last Dose Unchanged omeprazole (omeprazole 20 mg oral delayed release capsule) Unchanged tiZANidine (tiZANidine 4 mg oral tablet) Please take this list to your next doctor s visit. Bring all medications you take, including over the counter medications, herbals and other supplements with you to your doctor s visit. Patients and families are reminded to discard old lists and to update any records with all medication providers or retail pharmacies. Education Materials Monitored Anesthesia Care, Care After These instructions provide you with information about caring for yourself after your procedure. Your health care provider may also give you more specific instructions. Your treatment has been planned according to current medical practices, but problems sometimes occur. Call your health care provider if you have any problems or questions after your procedure. What can I expect after the procedure? After your procedure, you may: Feel sleepy for several hours. Feel clumsy and have poor balance for several hours. Feel forgetful about what happened after the procedure. Have poor judgment for several hours. Feel nauseous or vomit. Have a sore throat if you had a breathing tube during the procedure. Follow these instructions at home: For at least 24 hours after the procedure: Have a responsible adult stay with you. It is important to have someone help care for you until you are awake and alert. Rest as needed. Do not: ? Participate in activities in which you could fall or become injured. ? Drive. ? Use heavy machinery. ? Drink alcohol. ? Take sleeping pills or medicines that cause drowsiness. ? Make important decisions or sign legal documents. ? Take care of children on your own. Eating and drinking Follow the diet that is recommended by your health care provider. If you vomit, drink water, juice, or soup when you can drink without vomiting. Make sure you have little or no nausea before eating solid foods. General instructions Take ekcb-puh-fvedrva and prescription medicines only as told by your health care provider. If you have sleep apnea, surgery and certain medicines can increase your risk for breathing problems. Follow instructions from your health care provider about wearing your sleep device: ? Anytime you are sleeping, including during daytime naps. ? While taking prescription pain medicines, sleeping medicines, or medicines that make you drowsy. If you smoke, do not smoke without supervision. Keep all follow-up visits as told by your health care provider. This is important. Contact a health care provider if: You keep feeling nauseous or you keep vomiting. You feel light-headed. You develop a rash. You have a fever. Get help right away if: You have trouble breathing. Summary For several hours after your procedure, you may feel sleepy and have poor judgment. Have a responsible adult stay with you for at least 24 hours or until you are awake and alert. This information is not intended to replace advice given to you by your health care provider. Make sure you discuss any questions you have with your health care provider. Document Released: 12/03/2016 Document Revised: 11/11/2018 Document Reviewed: 12/03/2016 [employer] Patient [employer] Flexible Sigmoidoscopy, Care After This sheet gives you information about how to care for yourself after your procedure. Your health care provider may also give you more specific instructions. If you have problems or questions, contact your health care provider. What can I expect after the procedure? After the procedure, it is common to have: Abdominal cramping or pain. Bloating. A small amount of rectal bleeding if you had a biopsy. Follow these instructions at home: Take wxhi-cjz-rykjgxr and prescription medicines only as told by your health care provider. Do not drive for 24 hours if you received a medicine to help you relax (sedative). Keep all follow-up visits as told by your health care provider. This is important. Contact a health care provider if: You have abdominal pain or cramping that gets worse or is not helped with medicine. You continue to have small amounts of rectal bleeding after 24 hours. You have nausea or vomiting. You feel weak or dizzy. You have a fever. Get help right away if: You pass large blood clots or see a large amount of blood in the toilet after having a bowel movement. You have nausea or vomiting for more than 24 hours after the procedure. This information is not intended to replace advice given to you by your health care provider. Make sure you discuss any questions you have with your health care provider. Document Released: 08/18/2014 Document Revised: 04/05/2017 Document Reviewed: 11/11/2016 [employer] Patient Education [employer] Additional Information VACCINATE! IT SAVES LIVES! Members of the community who have not yet received the COVID-19 vaccine and would like to receive it can visit one of [facility] vaccine clinics. There are many vaccine clinic locations within the [facility]. For locations and available times, please visit [email or web address] It is important to note that some COVID mobile vaccine clinics are held outdoors and may be canceled in rainy or stormy conditions. To learn more about pediatric vaccinations (ages 5-11), we invite you to visit the [facility] webpage. [email or web address]/[email or web address]-[email or web address] -Questions.html To learn more about the COVID-19 vaccine, we invite you to visit the CDC website for a list of frequently asked questions.https://www.cdc.gov/coronavi magdaleno/2019-ncov/vaccines/faq.html [employer] Patient Portal Access Instructions: Stay connected with your healthcare team and access your personal medical information anytime with the [employer] Patient Portal. Please follow the directions below to create your [employer] account: 1.Access the email account you provided upon registration to the hospital/physician office.2.Look for an invitation email from [facility].3.Open the email and access the invitation link: Accept Invitation to [employer].4.Fill in the required richter to create your account. To access your account, visit [employer]MMRGlobalOneChart. Click the blue button labeled Access Patient Portal and then log in with the username and password that you created in the steps above. You will be able to view your test results, lab results, a summary of your visits, upcoming appointments and more. There is also a convenient messaging option where you can send secure messages to your provider. In addition, you will have the ability to download any documents or summaries to your computer and/or send the information securely to a physician. Remember that your healthcare information is confidential, so carefully consider who you will allow to register on the [employer] Patient Portal for access to your information. You can also access the [employer] Patient Portal on the [employer] Anywhere jaleesa. Simply click on Patient Portal and then log into your account. If you would like to receive a full copy of your medical records, please contact the [facility] Medical Records Department by calling [phone], Sunday through Sunday between 8 a.m. and 4:30 p.m. HOW TO SAFELY DISPOSE OF PRESCRIPTION MEDICATIONS Please use one of the following methods to safely dispose of your unused medications. 1.Use a drug disposal kit: the drug disposal pouch allows you to safely discard your old and unused drugs. Ask your nurse to give you one when you are discharged.2.Visit a local take-back location: Many local pharmacies and police departments have programs that collect old and unwanted prescription drugs. Call your local pharmacy or go to http://[employer].Company/8J6Tm4i to find one close to you.3.Make use of household items: Use cat litter or old coffee grounds to dispose medications if other options are not available. Mix your drugs with these household products, seal them in an airtight container and throw it into the garbage. Call [facility]: [phone] to be sure your drugs can be disposed of in this way. Some medicines may require a different approach.4.Never flush your medications down the toilet. IF YOU HAVE BEEN PRESCRIBED AN OPIOID FOR PAIN If you have been prescribed an opioid (such as hydrocodone, oxycodone or morphine), it is critical to understand the possible side effects and risks of opioid pain medications. Even when taken as directed, opioids can have several side effects including: Tolerance, meaning you might need to take more of a medication for the same pain relief. Nausea, vomiting and/or constipation. Sleepiness, dizziness, dry mouth, confusion, depression or itching. Physical dependence, meaning you have withdrawal symptoms when a medication is stopped, can develop within a few days. KNOW YOUR RESPONSIBILITIES It is important to know exactly how much and how often to take the opioid pain medications you are prescribed. Never take opioids in higher amounts or more often than prescribed. Do not combine opioids with alcohol or other drugs that cause drowsiness, such as benzodiazepines, also known as benzos, including diazepam and alprazolam, muscle relaxants or sleep aids. Never sell or share prescription opioids. This is illegal. Store opioids in a secure place and out of reach of others (including children, family, friends and visitors). The last page of this document has been signed and retained as a CHART COPY. Signatures Patient Education Materials Monitored Anesthesia Care, Care After Flexible Sigmoidoscopy, Care After Medication Leaflets My discharge plan and instructions have been reviewed and explained to me and I,NOREEN JULIO understand my current condition and have read and understand these discharge instructions. I have received a written copy of the plan/instructions. If I have questions, I am aware that I should contact my doctor. Patient/Processor Inspector Signature: _ Date/Time: Relationship to Patient: Witness Name/Signature: Date/Time: [facility] Anesthesiology Consult note 11-19-2023 Note Date & Type Note Facility 11-19-2023 Anesthesiology Consult note Patient: NOREEN JULIO Age: 78 years Sex: Female : 1945 Associated Diagnoses: None Author: VICENTA SALAS APRN-PRECIPITATION EQUIPMENT TENDER Assessment Postanesthesia assessment Vitals: Vital signs from flowsheet : Vital Signs 11/19/2023 10:30 EDT Heart Rate Monitored 72 bpm bpm Respiratory Rate - Anes 16 br/min br/min 11/19/2023 10:25 EDT Heart Rate Monitored 73 bpm bpm Respiratory Rate - Anes 19 br/min br/min Systolic Blood Pressure Non-Invasive 87 mmHg mmHg Diastolic Blood Pressure Non-Invasive 60 mmHg mmHg 11/19/2023 10:21 EDT Systolic Blood Pressure Non-Invasive 81 mmHg mmHg Diastolic Blood Pressure Non-Invasive 70 mmHg mmHg 11/19/2023 10:20 EDT Heart Rate Monitored 76 bpm bpm Respiratory Rate - Anes 19 br/min br/min 11/19/2023 10:15 EDT Heart Rate Monitored 76 bpm bpm Respiratory Rate - Anes 17 br/min br/min Systolic Blood Pressure Non-Invasive 90 mmHg mmHg Diastolic Blood Pressure Non-Invasive 58 mmHg mmHg 11/19/2023 10:10 EDT Heart Rate Monitored 75 bpm bpm Respiratory Rate - Anes 19 br/min br/min Systolic Blood Pressure Non-Invasive 96 mmHg mmHg Diastolic Blood Pressure Non-Invasive 60 mmHg mmHg 11/19/2023 10:06 EDT Systolic Blood Pressure Non-Invasive 128 mmHg mmHg Diastolic Blood Pressure Non-Invasive 68 mmHg mmHg 11/19/2023 10:05 EDT Heart Rate Monitored 68 bpm bpm Respiratory Rate - Anes 21 br/min br/min 11/19/2023 10:00 EDT Heart Rate Monitored 67 bpm bpm Respiratory Rate - Anes 6 br/min br/min Systolic Blood Pressure Non-Invasive 110 mmHg mmHg Diastolic Blood Pressure Non-Invasive 60 mmHg mmHg 11/19/2023 9:57 EDT Systolic Blood Pressure Non-Invasive 114 mmHg mmHg Diastolic Blood Pressure Non-Invasive 58 mmHg mmHg , Measurements from flowsheet . Mental status: alert & oriented x 4. Respiratory function: respirations are non-labored. Respiratory support: none. CV function: Normal rate. Cardiovascular support: none. Pain. Nausea status: see nursing documentation of medications. Postoperative hydration status: within normal limits. Digitally Signed by VICENTA SALAS on 11/19/2023 10:33 AM [facility] Anesthesiology Consult note 11-19-2023 Note Date & Type Note Facility 11-19-2023 Anesthesiology Consult note Patient: NOREEN JULIO Age: 78 years Sex: Female : 1945 Associated Diagnoses: None Author: VICENTA SALAS Preoperative Information Time of last food or liquid consumption: 11/19/2023 00:00:00 Anesthesia history Patient's history: negative. Family's history: negative. Health Status Allergies: Allergic Reactions (Selected) Severity Not Documented Amoxicillin- No reactions were documented. Augmentin- Rash and rah. Cephalexin- No reactions were documented. Halothane- No reactions were documented. Penicillin- No reactions were documented. Sulfa drug- No reactions were documented., Allergies (6) ActiveReaction amoxicillinNone Documented AugmentinRASH cephalexinNone Documented halothaneNone Documented penicillinNone Documented sulfa drugNone Documented Current medications: (Selected) Inpatient Medications Ordered LR 1,000 mL: 50 mL/hr, Intravenous Documented Medications Documented omeprazole 20 mg oral delayed release capsule: 0 Refill(s) tiZANidine 4 mg oral tablet: 0 Refill(s), Medications (1) Active Scheduled: (0) Continuous: (1) Lactated Ringers 1,000 mL 1,000 mL, Intravenous, 50 mL/hr PRN: (0) Problem list: Active Problems (1) Kidney stones Histories Past Medical History: No active or resolved past medical history items have been selected or recorded. Family History: Breast cancer Mother Heart failure Father Procedure history: Cholecystectomy (97710465). Tonsillectomy (780923150). Colonoscopy (741438356). Cholecystectomy (56522300). Ankle fracture (359959328). section ([id number]). Social History Social & Psychosocial Habits Alcohol 11/19/2023 Use: Never Substance Abuse 11/19/2023 Use: Never Tobacco 11/19/2023 Tobacco Use: Never (less than 100 in l Home/Environment 11/19/2023 Living situation: Home/Independent Domestic Concerns None Nutrition/Health 11/19/2023 Type of diet: Regular Appetite Good Eating Difficulties None . Physical Examination No qualifying data available General: Alert and oriented. Airway: Normal temporomandibular joint mobility, Normal mouth, Normal neck range of motion. Mallampati classification: III (soft palate, base of uvula visible). Dentition Evaluation: Dentures, lower, Dentures, upper. Respiratory: Respirations are non-labored. Cardiovascular: Normal rate. Neurologic: Alert, Oriented. Review / Management Results review: No qualifying data available , Lab results 11/19/2023 9:55 EDT [place] History and Physical 11/19/2023 9:54 EDT SN - Proc - Anesthesia Type MAC SN - Proc - EBL 0 mL SN - Proc - Actual Procedure FLEXIBLE SIGMOIDOSCOPY WITH ARGON PLASMA COAGULATION 11/19/2023 9:53 EDT SN - PP - Body Position Lateral Right Side-up Standard Intra-op 11/19/2023 9:52 EDT SN - GCD - ASA Class 3 SN - GCD - Post-operative Diagnosis SIGMOID POLYP SN - GCD - Case Level OPD Level 3 11/19/2023 9:52 EDT SN - CAt - Case Attendee SN - CAt - Case Attendee SN - CAt - Case Attendee SN - CAt - Case Attendee SN - CAt - Case Attendee SN - CAt - Case Attendee SN - CAt - Case Attendee SN - CAt - Case Attendee SN - CAt - Role Performed Primary Surgeon SN - CAt - Role Performed Cook Relief 1 SN - CAt - Role Performed Wheelchair Driver SN - CAt - Role Performed PRECIPITATION EQUIPMENT TENDER 11/19/2023 8:52 EDT Continuous IV Infusions lr Forearm Right 11/19/2023 22 gauge Peripheral IV Activity: Insert new site Peripheral IV Site Condition: No complications Lactated Ringers Injection Begin Bag 1,000 mL mL 11/19/2023 8:49 EDT Urinary Elimination Voiding, no difficulties IV Present Present Allergies Yes Senior Designer On Yes Consent Form Signed Yes Patient Dressed In Hospital gown Obstructive Sleep Apnea Assess Completed Yes NPO Status Maintained Allergy Band on and Verified Yes Implants Verified Yes Pacemaker/AICD Verified Yes Site Verified by Patient/Family Yes Last Fluid Intake 11/19/2023 0:01 Last Food Intake 11/18/2023 7:00 Last Void 11/19/2023 8:51 11/19/2023 8:47 EDT Designated Person #1 We May Share SORAIDA SUMMERS [phone] Designated Person #1 Relationship Spouse Privacy Restrictions Requested None Status N/A Sensory Deficits Hearing deficit, left ear, Hearing deficit, right ear Sleep Apnea Snore No Sleep Apnea Tired No Sleep Apnea Obstruction No Sleep Apnea Pressure No Sleep Apnea BMI No Sleep Apnea Age Yes Sleep Apnea Neck No Sleep Apnea Gender No Sleep Apnea Score 1 Diagnosed With Sleep Apnea No Advanced Directives Yes Advance Directive Type [place] Durable Power of Dog Pound Attendant for [facility] [place] Declaration (Living Will) Advance Directive Location Family instructed to bring in copy Infectious Disease Symptoms Patient states no symptoms Infectious Disease Recent Exposure No Alcohol and Drug Use No Employee of Institutional Living No Health Care Employee No History of Exposure to TB No History of Positive Chest X-Ray for TB No History of Positive TB Skin Test No Homeless No Known Immunosuppression No Recent Immigrant No Resident of Institutional Living No Bloody Sputum No Fatigue No Fever No Loss of Appetite No Night Sweats No Persistent Cough > 3 Weeks No Weight Loss No Barriers to Learning Hearing deficit Teaching Method Explanation Preferred Spoken Language [place] Preferred Written Language [place]er Teaching Evaluation No further teaching needed Safety Brochure Information Reviewed Unable to complete [place] Video Viewed No Information Given by Unable to obtain Patient's Current Physicians PETER LATHAM (MELI) Discharge To, Anticipated Home with family care Prev Test Positive/Diagnosis w/COVID-19 No Current Quarantine/Isolated any Illness No Any Contact with Sick Animals/Birds No Traveled Anywhere in Last 30 Days Yes Travel Where Outside [place] State[place] Lost Weight Unintentionally Recently No Eat Poorly Due to Decreased Appetite No Total MST Score 0 N/A Personal Devices, Patient Valuables Dentures, lower, Dentures, upper Admission Note-Nursing Same Day Patient History . Assessment and Plan [place] [employer] of Anesthesiologists (ASA) physical status classification: Class III. Anesthetic Preoperative Plan Anesthetic technique: MAC. Informed consent: signed by patient. Digitally Signed by VICENTA SALAS on 11/19/2023 10:02 AM [facility] Clinical Note 11-19-2023 Note Date & Type Note Facility 11-19-2023 Note [facility] ADMISSION HISTORY AND PHYSICIAL CHIEF COMPLAINT: HISTORY OF PRESENT ILLNESS: REVIEW OF SYSTEMS: ACTIVE PROBLEMS: (1) Kidney stones ([id number]) MEDICATIONS: Active Inpt Meds: None Active PRN Meds: None One Time Meds: None Active IV Meds: Lactated Ringers Infusion 1,000 mL (LR 1,000 mL) Start: 11/19/23 8:49:00 EDT, Rate: 50 mL/hr, 11/19/23 8:49:00 EDT ALLERGIES: (6) amoxicillin Augmentin cephalexin halothane penicillin sulfa drug FAMILY HISTORY: SOCIAL HISTORY: PHYSICAL EXAM: VITALS: No Data Available 24 Hr Tmax: No Data Available 36 Hr Tmax: No Data Available Vital Signs are the last 5 in the past 48 hours. Weights display the last 5 within 7 days. Initial Wt: No Data Available Current Wt: No Data Available GENERAL: HEENT: CARDIOVASCULAR: RESPIRATORY: ABDOMEN: EXREMETIES: NEUROLOGICAL: PSYCHIATRIC: LABS: No 36hr Lab Data DIAGNOSTICS: IMPRESSION: PLAN: History and Physical Update I have examined the patient; reviewed the H&P and there are no changes to the H&P unless noted below. Digitally Signed by EDDA ALFORD MD on 11/19/2023 09:58 AM [facility] Evaluation note Note Date & Type Note Facility Evaluation note No assessment information availa ble [facility] Work Phone: Hospital course Narrative Note Date & Type Note Facility Hospital course Narrative No data available for this section [facility] Chief Complaint and Reason for Visit Chief Complaint SCREENING Advance Directives No Advanced Directives Records Found Advance Directive Response Recorded Date/ Time Living Will No March 15, 2016 7:14pm Power of Dog Pound Attendant No March 15 6 7:14pm Summary Purpose Family History No Family History Records Found Additional Source Comments Care Teams (unrecognized sec tion and content) Team Status: Active Member Role Status Dates Dr. Didier Latham MD Family Provider Active Dr. Didier Latham MD Primary Care Provider Activ e Team Status: Inactive Member Role Status Dates Dr. Didier Latham MD Primary Care Provider, Attending Provider, Referring Provider Active Goals (unrecognized section and content) Goals may be documented in a n alternate section No data available for this section INFORMATION SOURCE (unrecogn ized section and content) DATE CREATED AUTHOR 11/26/2023 [facility] ([place] DATE CREATED AUTHOR AUTHOR'S ORGANIZ ATION 01/03/2025 [facility] DATE CREATED AUTHOR AUTHOR'S ORGANIZ ATION 01/31/2025 [facility] FOR RECORDS PERTAINING TO PATIENTS WHO ARE OR HAVE BEEN ENROLLED IN A CHEMICAL DEPENDENCY/SUBSTANCEABUSE PROGRAM, SOME INFORMATION MAY BE OMITTED. This clinical summary was aggregated from multiple sources. Caution should be exercised in using it in the provision of clinical care. This summary normalizes information from multiple sources, and as a consequence, information in this document may materially change the coding, format and clinical context of patient data. In addition, data may be omitted in some cases. CLINICAL DECISIONS SHOULD BE BASED ON THE PRIMARY CLINICAL RECORDS. [facility]. provides no warranty or guarantee of the accuracy or completeness of information in this document.
== END | disposition home or self-care (01) ==
LOC: MFPLAB 08:58
PROVIDERS: PCP Family Medicine; Referring Provider Family Medicine; Visit Provider Family Medicine
DX: M81.0 Age-related osteoporosis without current pathological fracture (principal)
CPT/HCPCS: 36415; 80048; 82306; 84443

== ENCOUNTER → 2025-02-03 | Outpatient (CLI) | payer MEDICARE, SELFPAY ==
--- NOTE | 2025-02-03 12:18 | BI_ITS ---
EXAM: SCRN MAMM (CAD)W/GIORGIO BILAT DATE: 02/03/2025 CLINICAL HISTORY: F, Age 79 y/o , SCREENING Mother with breast cancer. BREAST CANCER RISK ASSESSMENT: Not assessed. TECHNIQUE: Bilateral screening digital breast tomosynthesis with 2D and 3D images. Computer aided detection. COMPARISON: Prior exam(s) dated August 15, 2023. FINDINGS: TISSUE DENSITY: The breast tissue is heterogenously dense, which may obscure small masses. Bilateral Breast Mammographic Findings: No significant masses, calcifications or other abnormalities are identified. BI/SCRN MAMM (CAD)W/GIORGIO BILAT IMPRESSION: OVERALL FINAL ASSESSMENT: BIRADS 1 NEGATIVE RECOMMENDATION: Routine annual follow-up in 1 Year A letter with findings and recommendations will be mailed to the patient. Reading Location: [place] [id number]
== END | disposition home or self-care (01) ==
PROVIDERS: PCP Family Medicine; Referring Provider Family Medicine; Visit Provider Family Medicine
DX: Z00.00 Encounter for general adult medical examination without abnormal findings (principal); Z12.31 Encounter for screening mammogram for malignant neoplasm of breast
CPT/HCPCS: 77063; 77067